=== PATIENT | female | born 1955 | race Hispanic/Latino ===

== ENCOUNTER 2017-07-29 22:18 | Emergency (ER) | payer MEDICAID ==
[~2017-07-29 22:18] MED LIST: ASPI-1005 PO; CITA-107 PO; ESOM40CA PO; FURO40TA7 PO; HYDR-3421 PO; Isosorbide Mononitrate PO; LEVO500T2 PO; LISI40TA4 PO; LORA1TAB3 PO; METO100T14 PO; PREG100C PO; SIMV40TA5 PO; TICA90TA PO; ZOLP10TA6 PO
[2017-07-29] MEDS ORDERED: ACETAMINOPHEN-CODEINE ELIXIR 5 ML UDCUP ONE (22:31)
== END 2017-07-29 23:02 | disposition home or self-care (01) ==
LOC: EDH 22:18
DX: S80.02XA Contusion of left knee, initial encounter (principal); S20.211A Contusion of right front wall of thorax, initial encounter; E11.9 Type 2 diabetes mellitus without complications; G89.29 Other chronic pain; M54.9 Dorsalgia, unspecified; I25.10 Atherosclerotic heart disease of native coronary artery without angina pectoris; I50.9 Heart failure, unspecified; Z98.890 Other specified postprocedural states; W01.0XXA Fall on same level from slipping, tripping and stumbling without subsequent striking against object, initial encounter; Y93.89 Activity, other specified; Y92.89 Other specified places as the place of occurrence of the external cause; Y99.8 Other external cause status
CPT/HCPCS: 71045; 73562

== ENCOUNTER 2017-08-06 04:29 | Inpatient (IN) | payer MEDICAID ==
[~2017-08-06] VITALS: Ht 167.6 cm; Wt 98.4 kg
[2017-08-06] MEDS ORDERED: NITROGLYCERIN 50 MG/D5% WATER 1 BOT ONE (04:33)
[2017-08-06] MEDS ORDERED: FUROSEMIDE 10 MG/ML 4ML VIAL ONE (04:34)
[2017-08-06 04:40] LABS: ABG BASE EXCESS -21.2 mmol/L (-2.0-3.0); ABG HCO3 13.4 mmol/L (21.0-28.0); ABG OXYGEN SATURATION 76.3 % (95.0-99.0); ABG PCO2 77 mmHg (32-45)
[2017-08-06] MEDS ORDERED: NITROGLYCERIN 0.4 MG SL TAB SL ONE (04:45)
[2017-08-06 05:28] LABS: BASOPHILS % (AUTO) 0.4 % (0.0-5.0); EOSINOPHILS % (AUTO) 2.1 % (0.0-8.0); HEMATOCRIT 41.1 % (36-48); LYMPHOCYTES % (AUTO) 38.1 % (21.0-51.0); MEAN CORPUSCULAR HEMOGLOBIN 28.8 pg (27.0-33.0); MEAN CORPUSCULAR HGB CONC 30.9 g/dL (32.0-36.0); MEAN CORPUSCULAR VOLUME 93.4 fL (79-99); NEUTROPHILS % (AUTO) 52.4 % (40.0-77.0); PLATELET COUNT (AUTO) 430 K/uL (130-400); RED BLOOD CELL COUNT(AUTO) 4.39 MIL/uL (4.00-5.50); RED CELL DISTRIBUTION WIDTH 15.1 % (11.0-15.5); WHITE BLOOD COUNT (AUTO) 21.1 K/uL (4.8-10.8)
[2017-08-06 05:31] LABS: ABG BASE EXCESS -7.1 mmol/L (-2.0-3.0); ABG HCO3 18.7 mmol/L (21.0-28.0); ABG PCO2 39 mmHg (32-45)
[2017-08-06 05:33] LABS: INR 0.95 (0.85-1.15); PARTIAL THROMBOPLASTIN TIME 28.7 SEC (26.3-35.5)
[2017-08-06 05:34] LABS: CREATININE 1.1 mg/dL (0.5-1.5); POTASSIUM 4.6 mmol/L (3.5-5.1)
[2017-08-06 05:46] LABS: ALBUMIN 3.3 g/dL (3.5-5.0); BILIRUBIN,TOTAL 0.3 mg/dL (0.2-1.0); TOTAL PROTEIN, SERUM 7.5 g/dL (6.0-8.3)
[2017-08-06 05:47] LABS: B-TYPE NATRIURETIC PEPTIDE 681 pg/mL (0-100)
[2017-08-06 05:54] LABS: APPEARANCE,URINE Clear (CLEAR); BILIRUBIN,URINE Negative (NEGATIVE); COLOR,URINE Yellow (YELLOW); GLUCOSE, URINE (UA) 250 mg/dL (NEGATIVE); KETONES,URINE Negative (NEGATIVE); LEUKOCYTE ESTERASE ,URINE Negative (NEGATIVE); NITRATE,URINE Negative (NEGATIVE); OCCULT BLOOD,URINE Negative (NEGATIVE); PROTEIN,URINE POS 1+ (NEGATIVE); UROBILINOGEN,URINE 0.2 mg/dL (0.2-1.0)
[2017-08-06 05:58] LABS: BACTERIA,URINE None Seen /HPF (None Seen); MUCUS,URINE None Seen LPF (None Seen); RBC,URINE 0-1 /HPF (0-1); SQUAMOUS EPITHELIAL CELL,UR Few /HPF (0-2); WBC,URINE 0-1 /HPF (0-1)
[2017-08-06 11:00] VITALS: BP 101/58
[2017-08-06] MEDS ORDERED: IPRATROPIUM/ALBUTEROL SULFATE 3 ML SOLUTION IH SCH (12:00)
[2017-08-06] MEDS ORDERED: HYDROXYZINE HCL 25 MG TABLET PO PRN (14:45)
[2017-08-06] MEDS ORDERED: LORAZEPAM 1 MG TABLET PO PRN (14:45)
[2017-08-06] MEDS: DOXYCYCLINE 100MG+NS 250ML 250 ML IV SCH (15:58)
[2017-08-06] MEDS: FUROSEMIDE 10 MG/ML 4ML VIAL IV SCH ×2 (15:59→22:47)
[2017-08-06] MEDS: METHYLPREDNISOLONE SOD SUCC 40MG/ML 1ML IVP SCH ×2 (16:00→22:47)
[2017-08-06] MEDS: HEPARIN SODIUM 5000UNIT/ML 1ML VIAL SQ SCH (16:08)
[2017-08-06 16:16] VITALS: BP 137/71
[2017-08-06] MEDS ORDERED: HYDROCODONE/ACETAMINOPHEN 5/325 MG TAB PO PRN (16:30)
[2017-08-06] MEDS: IPRATROPIUM/ALBUTEROL SULFATE 3 ML SOLUTION IH SCH ×2 (18:25→21:24)
[2017-08-06 19:28] VITALS: BP 141/74
[2017-08-06] MEDS: BUDESONIDE 0.5 MG/2 ML INH IH SCH (21:16)
[2017-08-06] MEDS: INSULIN HUMULIN R 100 UNIT/ML 3ML SQ SCH (21:36)
[2017-08-06] MEDS: ATORVASTATIN CALCIUM 20 MG TABLET PO SCH (21:39)
[2017-08-06] MEDS: TICAGRELOR 90 MG TABLET PO SCH (21:39)
[2017-08-06] MEDS: PREGABALIN 100 MG CAPSULE PO SCH (21:39)
[2017-08-06] MEDS: METOPROLOL TARTRATE 50 MG TAB PO SCH (21:39)
[2017-08-06] MEDS: ISOSORBIDE MONONITRATE 20 MG TABLET PO SCH (21:40)
[2017-08-06] MEDS: CITALOPRAM 20 MG TABLET PO SCH (21:40)
[2017-08-06] MEDS: ZOLPIDEM TARTRATE 5 MG TAB PO SCH (22:56)
[2017-08-07] VITALS (7 sets, daily range): BP systolic 125–159; BP diastolic 57–85
[2017-08-07] MEDS: LISINOPRIL 40 MG TABLET PO SCH ×2 (00:45→20:19)
[2017-08-07] MEDS: IPRATROPIUM/ALBUTEROL SULFATE 3 ML SOLUTION IH SCH ×3 (02:07→09:37)
[2017-08-07] MEDS: DOXYCYCLINE 100MG+NS 250ML 250 ML IV SCH ×2 (02:08→15:26)
[2017-08-07] MEDS: HEPARIN SODIUM 5000UNIT/ML 1ML VIAL SQ SCH ×2 (02:22→15:35)
[2017-08-07 03:32] LABS: ABG BASE EXCESS -2.1 mmol/L (-2.0-3.0); ABG HCO3 21.1 mmol/L (21.0-28.0); ABG OXYGEN SATURATION 96.7 % (95.0-99.0); ABG PCO2 32 mmHg (32-45)
[2017-08-07 03:59] LABS: HEMATOCRIT 33.7 % (36-48); MEAN CORPUSCULAR HEMOGLOBIN 29.5 pg (27.0-33.0); MEAN CORPUSCULAR HGB CONC 33.4 g/dL (32.0-36.0); MEAN CORPUSCULAR VOLUME 88.3 fL (79-99); PLATELET COUNT (AUTO) 258 K/uL (130-400); RED BLOOD CELL COUNT(AUTO) 3.82 MIL/uL (4.00-5.50); RED CELL DISTRIBUTION WIDTH 14.2 % (11.0-15.5)
[2017-08-07 04:06] LABS: INR 1.01 (0.85-1.15); PROTHROMBIN TIME 10.6 SEC (9.6-11.6)
[2017-08-07 04:23] LABS: ALBUMIN 3.2 g/dL (3.5-5.0); BILIRUBIN,TOTAL 0.3 mg/dL (0.2-1.0); CREATININE 1.3 mg/dL (0.5-1.5); MAGNESIUM 1.3 mg/dL (1.80-2.40); POTASSIUM 3.7 mmol/L (3.5-5.1); THYROID STIMULATING HORMONE 0.63 uIU/mL (0.36-3.74)
[2017-08-07] MEDS ORDERED: MAGNESIUM 2GM PREMIX 50ML 50 ML IV ONE (05:20)
[2017-08-07] MEDS ORDERED: POTASSIUM CHLORIDE 10 MEQ/TAB.SA PO ONE ×2 (05:20)
[2017-08-07] MEDS: BUDESONIDE 0.5 MG/2 ML INH IH SCH (06:08)
[2017-08-07] MEDS: INSULIN HUMULIN R 100 UNIT/ML 3ML SQ SCH ×5 (06:32→20:21)
[2017-08-07] MEDS ORDERED: MAGNESIUM 2GM PREMIX 50ML 50 ML IV SCH (06:45)
[2017-08-07] MEDS ORDERED: POTASSIUM CHLORIDE 10% ELIXIR 20 MEQ/15 ML UDCUP PO PRN (06:45)
[2017-08-07] MEDS ORDERED: LIDOCAINE HCL-MPF 1% 2ML VIAL IVP PRN (06:45)
[2017-08-07] MEDS: FUROSEMIDE 10 MG/ML 4ML VIAL IV SCH ×2 (06:45→06:54)
[2017-08-07] MEDS ORDERED: POTASSIUM CHLORIDE 20MEQ/100ML 100 ML IV PRN (06:45)
[2017-08-07] MEDS: METHYLPREDNISOLONE SOD SUCC 40MG/ML 1ML IVP SCH (06:54)
[2017-08-07] MEDS: PANTOPRAZOLE SODIUM 40 MG TABLET.DR PO SCH (09:09)
[2017-08-07] MEDS: ASPIRIN 81MG TAB.CHEW PO SCH (09:09)
[2017-08-07] MEDS: ISOSORBIDE MONONITRATE 20 MG TABLET PO SCH ×2 (09:09→20:18)
[2017-08-07] MEDS: PREGABALIN 100 MG CAPSULE PO SCH ×3 (09:09→20:18)
[2017-08-07] MEDS: TICAGRELOR 90 MG TABLET PO SCH ×2 (09:09→20:18)
[2017-08-07] MEDS: FUROSEMIDE 40 MG TABLET PO SCH ×2 (09:09→20:15)
[2017-08-07] MEDS: INSULIN GLARGINE 100 UNITS/ML 10 ML VIAL SQ SCH (09:22)
[2017-08-07] MEDS: HYDROCODONE/ACETAMINOPHEN 10/325 MG TAB PO PRN ×2 (10:48→17:44)
[2017-08-07] MEDS: MAGNESIUM 2GM PREMIX 50ML 50 ML IV SCH (10:49)
[2017-08-07] MEDS ORDERED: IPRATROPIUM/ALBUTEROL SULFATE 3 ML SOLUTION IH PRN (12:45)
[2017-08-07] MEDS: CITALOPRAM 20 MG TABLET PO SCH (20:16)
[2017-08-07] MEDS: ATORVASTATIN CALCIUM 20 MG TABLET PO SCH (20:18)
[2017-08-07] MEDS: METOPROLOL TARTRATE 50 MG TAB PO SCH (22:23)
[2017-08-07] MEDS: ZOLPIDEM TARTRATE 5 MG TAB PO SCH (22:23)
[2017-08-08] MEDS: HYDROCODONE/ACETAMINOPHEN 10/325 MG TAB PO PRN ×2 (00:33→06:41)
[2017-08-08] MEDS: INSULIN HUMULIN R 100 UNIT/ML 3ML SQ SCH ×3 (00:43→12:13)
[2017-08-08] MEDS: HEPARIN SODIUM 5000UNIT/ML 1ML VIAL SQ SCH (02:45)
[2017-08-08] MEDS: DOXYCYCLINE 100MG+NS 250ML 250 ML IV SCH (02:50)
[2017-08-08] MEDS: TICAGRELOR 90 MG TABLET PO SCH ×2 (03:13→09:19)
[2017-08-08 03:49] VITALS: BP 110/59
[2017-08-08 03:49] LABS: HEMATOCRIT 32.7 % (36-48); MEAN CORPUSCULAR HEMOGLOBIN 29.7 pg (27.0-33.0); MEAN CORPUSCULAR HGB CONC 34.2 g/dL (32.0-36.0); PLATELET COUNT (AUTO) 285 K/uL (130-400); RED BLOOD CELL COUNT(AUTO) 3.76 MIL/uL (4.00-5.50); RED CELL DISTRIBUTION WIDTH 14.5 % (11.0-15.5); WHITE BLOOD COUNT (AUTO) 14.2 K/uL (4.8-10.8)
[2017-08-08 03:54] LABS: MAGNESIUM 1.8 mg/dL (1.80-2.40); POTASSIUM 3.5 mmol/L (3.5-5.1)
[2017-08-08] MEDS: MAGNESIUM 2GM PREMIX 50ML 50 ML IV SCH (04:05)
[2017-08-08] MEDS ORDERED: OLME20TA22 PO (04:16)
[2017-08-08] MEDS: POTASSIUM CHLORIDE 20 MEQ ERTAB PO PRN ×2 (06:17→09:18)
[2017-08-08 07:37] VITALS: BP 125/68
[2017-08-08] MEDS ORDERED: METHYLPREDNISOLONE SOD SUCC 40MG/ML 1ML IVP SCH (08:00)
[2017-08-08] MEDS: PREGABALIN 100 MG CAPSULE PO SCH (09:17)
[2017-08-08] MEDS: FUROSEMIDE 40 MG TABLET PO SCH (09:18)
[2017-08-08] MEDS: ASPIRIN 81MG TAB.CHEW PO SCH (09:18)
[2017-08-08] MEDS: PANTOPRAZOLE SODIUM 40 MG TABLET.DR PO SCH (09:19)
[2017-08-08] MEDS: ISOSORBIDE MONONITRATE 20 MG TABLET PO SCH (09:20)
[2017-08-08] MEDS: INSULIN GLARGINE 100 UNITS/ML 10 ML VIAL SQ SCH (09:37)
[2017-08-08] MEDS ORDERED: DOXY100C2 PO (10:10)
[2017-08-08] MEDS ORDERED: LISI40TA4 PO (10:10)
[2017-08-08] MEDS ORDERED: FURO40TA7 PO (10:10)
[2017-08-08 11:21] VITALS: BP 130/66
== END 2017-08-08 13:30 | disposition home or self-care (01) | DRG 133 ==
LOC: EDH 04:29 → EDHIP 04:30 → 2BH 11:03 → 2AH 18:24
PROVIDERS: ADMIT Family Medicine; ATTEND Family Medicine
PROC: 5A09357 Assistance with Respiratory Ventilation, Less than 24 Consecutive Hours, Continuous Positive Airway Pressure (ICD-10-PCS; principal; 2017-08-06)
DX: J96.22 Acute and chronic respiratory failure with hypercapnia (principal); I50.33 Acute on chronic diastolic (congestive) heart failure; J18.9 Pneumonia, unspecified organism; I11.0 Hypertensive heart disease with heart failure; E87.2 Acidosis; J96.21 Acute and chronic respiratory failure with hypoxia; E11.9 Type 2 diabetes mellitus without complications; E66.2 Morbid (severe) obesity with alveolar hypoventilation; E78.5 Hyperlipidemia, unspecified; G89.4 Chronic pain syndrome; I25.10 Atherosclerotic heart disease of native coronary artery without angina pectoris; J44.0 Chronic obstructive pulmonary disease with (acute) lower respiratory infection; J44.1 Chronic obstructive pulmonary disease with (acute) exacerbation; M19.90 Unspecified osteoarthritis, unspecified site; Z68.35 Body mass index [BMI] 35.0-35.9, adult; Z88.8 Allergy status to other drugs, medicaments and biological substances; Z88.5 Allergy status to narcotic agent; Z72.0 Tobacco use; Z90.710 Acquired absence of both cervix and uterus; Z91.14 Patient's other noncompliance with medication regimen; Z91.19 Patient's noncompliance with other medical treatment and regimen; Z95.1 Presence of aortocoronary bypass graft
CPT/HCPCS: 36415; 36600; 71045; 80048; 80053; 81001; 82330; 82435; 82550; 82553; 82803; 82947; 82948; 83605; 83735; 83874; 83880; 84100; 84132; 84295; 84443; 84484; 85018; 85025; 85027; 85610; 85730; 93005; 93306; 94640; 94660; 94664; C9113; J1644; J1815; J1940; J2920; J3475; J3490

== ENCOUNTER 2018-02-23 14:01 | Emergency (ER) | payer MEDICAID ==
[~2018-02-23 14:01] MED LIST changes: -ASPI-1005 PO; +ASPI-555 PO; -CITA-107 PO; +FURO20TA4 PO; -FURO40TA7 PO; +GLIP1TAB6 PO; +ISOS30TA6 PO; -Isosorbide Mononitrate PO; -LEVO500T2 PO; -LORA1TAB3 PO; -METO100T14 PO; +METO50TA18 PO; +PARO-37 PO; +PIOG45TA64 PO; +PRED20TA3 PO; +TRAM50TA4 PO; +UMEC1DIS IH; -ZOLP10TA6 PO
[2018-02-23 14:55] LABS: BASOPHILS % (AUTO) 0.5 % (0.0-5.0); EOSINOPHILS % (AUTO) 1.1 % (0.0-8.0); HEMATOCRIT 35.8 % (36-48); LYMPHOCYTES % (AUTO) 22.9 % (21.0-51.0); MEAN CORPUSCULAR HGB CONC 34.3 g/dL (32.0-36.0); MEAN CORPUSCULAR VOLUME 84.5 fL (79-99); NEUTROPHILS % (AUTO) 67.5 % (40.0-77.0); PLATELET COUNT (AUTO) 236 K/uL (130-400); RED BLOOD CELL COUNT(AUTO) 4.23 MIL/uL (4.00-5.50); RED CELL DISTRIBUTION WIDTH 15.4 % (11.0-15.5); WHITE BLOOD COUNT (AUTO) 9.5 K/uL (4.8-10.8)
[2018-02-23 15:11] LABS: INR 0.91 (0.85-1.15); PARTIAL THROMBOPLASTIN TIME 23.6 SEC (26.3-35.5); PROTHROMBIN TIME 9.6 SEC (9.6-11.6)
[2018-02-23 15:18] LABS: CREATININE 0.9 mg/dL (0.5-1.5); POTASSIUM 3.3 mmol/L (3.5-5.1)
[2018-02-23 15:29] LABS: ALBUMIN 3.3 g/dL (3.5-5.0); BILIRUBIN,TOTAL 0.2 mg/dL (0.2-1.0)
[2018-02-23 15:32] LABS: B-TYPE NATRIURETIC PEPTIDE 190 pg/mL (0-100)
[2018-02-23] MEDS ORDERED: KETOROLAC TROMETHAMINE 15MG/ML ONE (15:34)
[2018-02-23 16:09] LABS: APPEARANCE,URINE CLEAR (CLEAR); BILIRUBIN,URINE NEGATIVE (NEGATIVE); COLOR,URINE YELLOW (YELLOW); GLUCOSE, URINE (UA) NEGATIVE (NEGATIVE); KETONES,URINE NEGATIVE (NEGATIVE); LEUKOCYTE ESTERASE ,URINE NEGATIVE (NEGATIVE); NITRATE,URINE NEGATIVE (NEGATIVE); OCCULT BLOOD,URINE NEGATIVE (NEGATIVE); PROTEIN,URINE 30 (NEGATIVE); UROBILINOGEN,URINE 0.2 mg/dL (0.2-1.0)
[2018-02-23 16:20] LABS: BACTERIA,URINE None Seen /HPF (None Seen); RBC,URINE None Seen /HPF (0-1); SQUAMOUS EPITHELIAL CELL,UR 0-2 /HPF (0-2); WBC,URINE None Seen /HPF (0-1)
[2018-02-23] MEDS ORDERED: MORPHINE SULFATE 4 MG/1ML SYG ONE (17:28)
[2018-02-23] MEDS ORDERED: ONDANSETRON HCL 4 MG/2 ML VIAL ONE (17:28)
== END 2018-02-23 18:29 | disposition home or self-care (01) ==
LOC: EDH 14:01
DX: S22.42XA Multiple fractures of ribs, left side, initial encounter for closed fracture (principal); I11.0 Hypertensive heart disease with heart failure; I50.9 Heart failure, unspecified; E11.9 Type 2 diabetes mellitus without complications; I25.10 Atherosclerotic heart disease of native coronary artery without angina pectoris; G89.29 Other chronic pain; M19.90 Unspecified osteoarthritis, unspecified site; Z90.710 Acquired absence of both cervix and uterus; Z98.890 Other specified postprocedural states; Z91.041 Radiographic dye allergy status; Z72.0 Tobacco use; Z79.4 Long term (current) use of insulin; X58.XXXA Exposure to other specified factors, initial encounter; Y93.89 Activity, other specified; Y92.89 Other specified places as the place of occurrence of the external cause; Y99.8 Other external cause status
CPT/HCPCS: 36415; 71045; 71250; 74150; 80053; 81001; 82550; 83874; 83880; 84484; 85025; 85610; 85730; 93005; 96374; 96375; 99284; J1885; J2270; J2405

== ENCOUNTER 2018-04-11 13:02 | Emergency (ER) | payer MEDICAID ==
[2018-04-11] MEDS ORDERED: ASPIRIN 325 MG TABLET ONE (13:27)
[2018-04-11] MEDS ORDERED: ACETAMINOPHEN 325 MG TAB ONE (13:29)
[2018-04-11 13:30] LABS: BASOPHILS % (AUTO) 0.4 % (0.0-5.0); EOSINOPHILS % (AUTO) 1.2 % (0.0-8.0); HEMATOCRIT 34.3 % (36-48); LYMPHOCYTES % (AUTO) 23.6 % (21.0-51.0); MEAN CORPUSCULAR HEMOGLOBIN 28.4 pg (27.0-33.0); MEAN CORPUSCULAR VOLUME 86.3 fL (79-99); MONOCYTES % (AUTO) 6.6 % (3.0-13.0); NEUTROPHILS % (AUTO) 68.2 % (40.0-77.0); NUCLEATED RED BLOOD CELLS 0.1 % (0.0-0.19); PLATELET COUNT (AUTO) 273 K/uL (130-400); RED BLOOD CELL COUNT(AUTO) 3.98 MIL/uL (4.00-5.50); WHITE BLOOD COUNT (AUTO) 6.7 K/uL (4.8-10.8)
[2018-04-11] MEDS ORDERED: ASPIRIN 81MG TAB.CHEW ONE (13:35)
[2018-04-11 13:37] LABS: POTASSIUM 3.8 mmol/L (3.5-5.1)
[2018-04-11 13:41] LABS: INR 0.95 (0.85-1.15); PARTIAL THROMBOPLASTIN TIME 27.5 SEC (26.3-35.5)
[2018-04-11 13:48] LABS: ALBUMIN 3.6 g/dL (3.5-5.0); BILIRUBIN,TOTAL 0.4 mg/dL (0.2-1.0); TOTAL PROTEIN, SERUM 7.5 g/dL (6.0-8.3)
[2018-04-11 13:51] LABS: B-TYPE NATRIURETIC PEPTIDE 286 pg/mL (0-100)
[2018-04-11] MEDS ORDERED: ONDANSETRON HCL 4 MG/2 ML VIAL ONE (14:26)
[2018-04-11] MEDS ORDERED: HYDROMORPHONE 1 MG/1 ML AMP ONE ×2 (14:26→17:42)
[2018-04-11] MEDS ORDERED: IPRATROPIUM/ALBUTEROL SULFATE 3 ML SOLUTION IH ONE (14:32)
[2018-04-11] MEDS ORDERED: FUROSEMIDE 10 MG/ML 2ML VIAL ONE (17:43)
== END 2018-04-11 18:45 | disposition home or self-care (01) ==
LOC: EDH 13:02
DX: I11.0 Hypertensive heart disease with heart failure (principal); I50.9 Heart failure, unspecified; E87.1 Hypo-osmolality and hyponatremia; E11.9 Type 2 diabetes mellitus without complications; I25.10 Atherosclerotic heart disease of native coronary artery without angina pectoris; M19.90 Unspecified osteoarthritis, unspecified site; G89.29 Other chronic pain; Z90.710 Acquired absence of both cervix and uterus; Z98.890 Other specified postprocedural states; Z72.0 Tobacco use; Z79.4 Long term (current) use of insulin
CPT/HCPCS: 36415; 71045; 80053; 82550; 83874; 83880 ×2; 84484; 85025; 85610; 85730; 93005; 94640; 96374; 96375; 96376; 99284; J1170 ×2; J1940; J2405

== ENCOUNTER 2019-01-11 00:26 | Observation (INO) | payer MEDICAID ==
[~2019-01-11] VITALS: Ht 165.1 cm; Wt 91.3 kg
[~2019-01-11 00:26] MED LIST changes: +SIMV-46 PO; -SIMV40TA5 PO
[2019-01-11 01:35] LABS: BASOPHILS % (AUTO) 2.7 % (0.0-5.0); EOSINOPHILS % (AUTO) 1.6 % (0.0-8.0); HEMATOCRIT 39.5 % (36-48); LYMPHOCYTES % (AUTO) 31.8 % (21.0-51.0); MEAN CORPUSCULAR HGB CONC 33.2 g/dL (32.0-36.0); MEAN CORPUSCULAR VOLUME 87.5 fL (79-99); MONOCYTES % (AUTO) 9.9 % (3.0-13.0); NUCLEATED RED BLOOD CELLS 0.1 % (0.0-0.19); PLATELET COUNT (AUTO) 282 K/uL (130-400); RED BLOOD CELL COUNT(AUTO) 4.51 MIL/uL (4.00-5.50); RED CELL DISTRIBUTION WIDTH 16.4 % (11.0-15.5); WHITE BLOOD COUNT (AUTO) 8.2 K/uL (4.8-10.8)
[2019-01-11] MEDS ORDERED: SODIUM CHLORIDE 0.9% 1000ML 1,000 ML IV ONE (01:37)
[2019-01-11 01:38] LABS: APPEARANCE,URINE Clear (CLEAR); BILIRUBIN,URINE Negative (NEGATIVE); COLOR,URINE Yellow (YELLOW); GLUCOSE, URINE (UA) Negative (NEGATIVE); KETONES,URINE Negative (NEGATIVE); LEUKOCYTE ESTERASE ,URINE Negative (NEGATIVE); NITRATE,URINE Negative (NEGATIVE); OCCULT BLOOD,URINE Negative (NEGATIVE); PROTEIN,URINE Negative (NEGATIVE); UROBILINOGEN,URINE 0.2 mg/dL (0.2-1.0)
[2019-01-11] MEDS ORDERED: ONDANSETRON HCL 4 MG/2 ML VIAL ONE (01:40)
[2019-01-11] MEDS ORDERED: METOCLOPRAMIDE 10 MG/2 ML VIAL ONE (01:40)
[2019-01-11] MEDS ORDERED: FAMOTIDINE/PF 20 MG/2 ML VIAL IV ONE (01:41)
[2019-01-11 02:00] LABS: CREATININE 1.1 mg/dL (0.5-1.5); POTASSIUM 4.1 mmol/L (3.5-5.1)
[2019-01-11 02:05] LABS: ALBUMIN 3.7 g/dL (3.5-5.0); BILIRUBIN,TOTAL 0.4 mg/dL (0.2-1.0); TOTAL PROTEIN, SERUM 7.8 g/dL (6.0-8.3)
[2019-01-11 02:15] LABS: INR 0.95 (0.85-1.15); PARTIAL THROMBOPLASTIN TIME 25.4 SEC (26.3-35.5)
[2019-01-11 02:16] LABS: MAGNESIUM 1.7 mg/dL (1.80-2.40)
[2019-01-11] MEDS ORDERED: MAG HYDROX/AL HYDROX/SIMETH ES 30 ML SUSP UDCUP ONE (03:24)
[2019-01-11] MEDS ORDERED: ASPIRIN 325 MG TABLET ONE (03:24)
[2019-01-11] MEDS ORDERED: LIDOCAINE HCL 2% VISCOUS 15 ML UDCUP ONE (03:24)
[2019-01-11] MEDS ORDERED: CEFTRIAXONE SODIUM 1 GM ONE (03:48)
[2019-01-11] MEDS ORDERED: MORPHINE SULFATE 2 MG/ML 1ML SYG ONE (04:00)
[2019-01-11 05:00] VITALS: BP 124/66
[2019-01-11] MEDS ORDERED: MORPHINE SULFATE 2 MG/ML 1ML SYG IVP PRN (05:30)
[2019-01-11] MEDS ORDERED: ONDANSETRON HCL 4 MG/2 ML VIAL IVP PRN (05:30)
[2019-01-11] MEDS ORDERED: ISOS20TA7 PO (05:42)
[2019-01-11] MEDS ORDERED: DIPH25TA20 PO (05:42)
[2019-01-11] MEDS ORDERED: SAXA2.5T PO (05:42)
[2019-01-11] MEDS ORDERED: BUME2TAB5 PO (05:42)
[2019-01-11 06:00] VITALS: BP 109/51
[2019-01-11 07:10] LABS: CREATINE KINASE, TOTAL 47 U/L (21-232); MYOGLOBIN 27 ng/mL (10-92); TROPONIN I < 0.04 ng/mL (0.00-0.06)
[2019-01-11] MEDS ORDERED: TRAMADOL HCL 50 MG TABLET PO PRN (07:15)
[2019-01-11] MEDS ORDERED: PANTOPRAZOLE SODIUM 40 MG TABLET.DR PO SCH (07:30)
[2019-01-11] MEDS ORDERED: DIPHENHYDRAMINE HCL 25 MG CAPSULE PO PRN (07:30)
--- NOTE | 2019-01-11 07:30 | NUR ---
NOTE AAOX3. DENIES PAIN OR DISCOMFORT AT THIS TIME. REPORTS SHE STARTED WITH EPIGASTRIC PAIN ABOUT 3 DAYS AGO. SHE HAS TELEMETRY SR. NO OTHER PROBLEMS VOICED.
[2019-01-11 08:00] VITALS: BP 109/51
[2019-01-11] MEDS ORDERED: PNEUMOCOCCAL VACCINE POLYVALENT 0.5 ML/VIAL [PPV] IM SCH (08:15)
[2019-01-11] MEDS ORDERED: PAROXETINE HCL 20 MG TABLET PO SCH (09:00)
[2019-01-11] MEDS ORDERED: ASPIRIN 81 MG EC TAB PO SCH (09:00)
[2019-01-11] MEDS ORDERED: ISOSORBIDE MONONITRATE 20 MG TABLET PO SCH (09:00)
[2019-01-11] MEDS ORDERED: PIOGLITAZONE HCL 45 MG TAB PO SCH (09:00)
[2019-01-11] MEDS ORDERED: ONGLYZA 2.5 MG PO SCH (09:00)
[2019-01-11] MEDS ORDERED: TICAGRELOR 90 MG TABLET PO SCH (09:00)
[2019-01-11] MEDS ORDERED: BUMETANIDE 1 MG TAB PO SCH (09:00)
[2019-01-11] MEDS: PREGABALIN 100 MG CAPSULE PO SCH ×2 (10:05→14:54)
[2019-01-11] MEDS: METFORMIN HCL 500 MG TABLET PO SCH ×2 (10:06→16:25)
[2019-01-11 11:02] VITALS: BP 110/50
[2019-01-11 13:33] LABS: CREATINE KINASE, TOTAL 50 U/L (21-232); MYOGLOBIN 23 ng/mL (10-92); TROPONIN I < 0.04 ng/mL (0.00-0.06)
[2019-01-11 16:00] VITALS: BP 119/67
--- NOTE | 2019-01-11 16:30 | NUR ---
NOTE SPOKE TO DR BAILEY. HE CAME IN AM AND SAID TO REPORT RESULTS FROM ABDOMINAL US AND IF THAT AND REST OF CARDIAC ENZYMES WERE NORMAL SHE COULD GO HOME AND FOLLOW UP WITH PCP AND REFER TO GI OUTPATIENT. WILL PROCEED WITH DISCHARGE SOON.
--- NOTE | 2019-01-11 19:20 | NUR ---
DISCHARGE-PIV removed and discharge instructions given per day shift nurse. Patient AAOx3, no acute distress noted.
[2019-01-12] MEDS ORDERED: GLIPIZIDE 5 MG TABLET PO SCH (08:00)
== END 2019-01-11 19:28 | disposition home or self-care (01) ==
LOC: EDH 00:26 → EDHIP 00:27 → 3AH 04:29
PROVIDERS: ADMIT Internal Medicine Critical Care Medicine; ATTEND Internal Medicine Critical Care Medicine
DX: R10.13 Epigastric pain (principal); R07.89 Other chest pain; I25.10 Atherosclerotic heart disease of native coronary artery without angina pectoris; I11.0 Hypertensive heart disease with heart failure; I50.9 Heart failure, unspecified; F41.8 Other specified anxiety disorders; E11.9 Type 2 diabetes mellitus without complications; E78.5 Hyperlipidemia, unspecified; G89.29 Other chronic pain; M54.9 Dorsalgia, unspecified; M19.90 Unspecified osteoarthritis, unspecified site; F17.200 Nicotine dependence, unspecified, uncomplicated; Z23 Encounter for immunization; Z95.1 Presence of aortocoronary bypass graft; Z79.82 Long term (current) use of aspirin; Z79.84 Long term (current) use of oral hypoglycemic drugs; Z79.899 Other long term (current) drug therapy; Z91.048 Other nonmedicinal substance allergy status
CPT/HCPCS: 36415; 71045; 76705; 80053; 81003; 82550 ×3; 83605; 83690; 83735; 83874 ×2; 83880; 84484 ×3; 85025; 85610; 85730; 90471; 90732; 93005 ×2; 96374; 99284; G0378 ×15; J0696; J2405; J2765; J3490; J7030

== ENCOUNTER → 2019-02-03 | Outpatient (CLI) | payer MEDICAID ==
[~2019-02-03] MED LIST changes: +BUME2TAB5 PO; +DIPH25TA20 PO; -FURO20TA4 PO; -HYDR-3421 PO; +ISOS20TA7 PO; -ISOS30TA6 PO; -LISI40TA4 PO; -METO50TA18 PO; -PRED20TA3 PO; +SAXA2.5T PO; -SIMV-46 PO; -UMEC1DIS IH
== END | disposition home or self-care (01) ==
LOC: SHCH 13:05
PROVIDERS: ATTEND Internal Medicine Cardiovascular Disease
DX: I73.9 Peripheral vascular disease, unspecified (principal)
CPT/HCPCS: 93922

== ENCOUNTER 2019-03-11 03:10 | Emergency (ER) | payer MEDICAID ==
[2019-03-11] MEDS ORDERED: KETOROLAC TROMETHAMINE 30MG/ML ONE (03:36)
[2019-03-11] MEDS ORDERED: MORPHINE SULFATE 5 MG/ML VIAL ONE (03:36)
[2019-03-11] MEDS ORDERED: HYDROMORPHONE 1 MG/1 ML AMP ONE ×2 (06:36)
== END 2019-03-11 07:31 | disposition home or self-care (01) ==
LOC: EDH 03:10
DX: M23.91 Unspecified internal derangement of right knee (principal); I11.0 Hypertensive heart disease with heart failure; I50.9 Heart failure, unspecified; E11.9 Type 2 diabetes mellitus without complications; I25.810 Atherosclerosis of coronary artery bypass graft(s) without angina pectoris; Z79.4 Long term (current) use of insulin; Z90.710 Acquired absence of both cervix and uterus; Z96.659 Presence of unspecified artificial knee joint; Z91.041 Radiographic dye allergy status
CPT/HCPCS: 73562; 96372 ×3; 99284; J1170 ×2; J1885; J2270

== ENCOUNTER 2019-05-30 04:01 | Emergency (ER) | payer MEDICAID | END 2019-05-30 05:04 | disposition home or self-care (01) | LOC: EDH 04:01 | DX: S82.402A Unspecified fracture of shaft of left fibula, initial encounter for closed fracture (principal); E11.9 Type 2 diabetes mellitus without complications; G89.29 Other chronic pain; I25.10 Atherosclerotic heart disease of native coronary artery without angina pectoris; M19.90 Unspecified osteoarthritis, unspecified site; I50.9 Heart failure, unspecified; Z72.0 Tobacco use; Z91.041 Radiographic dye allergy status; W18.39XA Other fall on same level, initial encounter; Y93.89 Activity, other specified; Y92.098 Other place in other non-institutional residence as the place of occurrence of the external cause; Y99.8 Other external cause status | CPT/HCPCS: 29515; 73562; 73610 ==